=== PATIENT | male | born 1965 | race Caucasian/White ===

== ENCOUNTER 2017-01-13 20:06 | Emergency (ER) | payer MEDICAID, OTHER ==
[~2017-01-13] VITALS: Ht 180.3 cm; Wt 108.0 kg
[2017-01-13 20:09] VITALS: Ht 180.3 cm; Wt 108.0 kg
[2017-01-13] MEDS ORDERED: HYDROmorphONE 1 MG/ML SYG IV STA (20:52)
[2017-01-13] MEDS ORDERED: DIPHENHYDRAMINE 50 MG INJ IV STA (20:52)
[2017-01-13] MEDS ORDERED: METOCLOPRAMIDE 10 MG INJ IV STA (20:52)
--- NOTE | 2017-01-13 21:19 | RADRPT ---
PROCEDURE: CT Brain without contrast. CLINICAL INDICATION: Severe headache and photophobia. TECHNIQUE: A CT of the brain without contrast was performed utilizing axial sections from the skul l base through the vertex. The patient was scanned without intravenous contrast enhancement. Sagitta l and coronal reformatted images were obtained using the data from the axial images. Total exam DLP is 720.23 mGy-cm. CTDIvol is 44.19 mGy. One or more of the following dose reduction techniques we re used: Automated exposure control, adjustment of the mA and/or kV according to patient size, use o f iterative reconstruction technique. COMPARISON: None available FINDINGS: There is normal manrique-white matter differentiation. The ventricles and cisterns are normal. There is no intracranial hemorrhage or space-occupying lesion. There is no skull fracture or lytic lesion. IMPRESSION: 1. Normal noncontrast CT scan of the brain. 2. No intracranial hemorrhage. RPTAT: QQ .Petar Carmona MD, MD Date Time Electronically viewed and signed by .Petar Carmona MD, on 01/13/2017 21:19 .R/
[2017-01-13] MEDS ORDERED: HYDR-902 PO (21:34)
[2017-01-13] MEDS ORDERED: AMLO-218 PO (21:34)
--- NOTE | 2017-01-13 21:43 | ERD ---
ER Documentation Chief Complaint Date/Time DATE: 01/13/17 TIME: 21:41 Chief Complaint migraine headaches x 1 day HPI This is a 51-year-old male is had headaches for a year and a half that began in the occipital region and spread diffusely there is no aura. Patient has photophobia phonophobia and headache is worse with positional change. The headache is throbbing. Patient has no nausea vomiting but does at times with these headaches. The patient had this headache for 1 day. The patient says he gets these headaches at random times that can occur once a week or twice a week sometimes sometimes longer. He has no focal neurological complaints such as numbness weakness speech or visual change. No fever stiff neck ROS All systems reviewed and are negative except as per history of present illness. Medications Home Meds Active Scripts Hydrocodone/Acetaminophen ([place] 10-325 Tablet) 1 Each Tablet, 1 TAB PO Q6H Y for PAIN, #20 TAB Prov:CAROLYNN CRUZSTALFREDITOS A. DO 01/13/17 Amlodipine Besylate* (Norvasc*) 10 Mg Tablet, 10 MG PO DAILY, #30 TAB Prov:LEKKOSAPOSTOLOS A. DO 01/13/17 Allergies Allergies: Coded Allergies: morphine (Verified Allergy, Unknown, sob, 01/13/17) PMhx/Soc History of Surgery: No Anesthesia Reaction: No Hx Neurological Disorder: Yes (MIGRAINES) Hx Respiratory Disorders: No Hx Cardiac Disorders: No Hx Psychiatric Problems: No Hx Miscellaneous Medical Probl: Yes (GERD) Hx Alcohol Use: No Hx Substance Use: Yes (MARIJUANA) Hx Tobacco Use: Yes Smoking Status: Current every day smoker FmHx Family History: No coronary disease Physical Exam Vitals Vital Signs Date Time Temp Pulse Resp B/P Pulse Ox O2 Delivery O2 Flow Rate FiO2 01/13/17 20:09 97.6 94 18 180/97 98 Physical Exam Const: Well-developed, well-nourished Head: Atraumatic, normocephalic Eyes: Normal Conjunctiva, PERRLA, EOMI, normal sclera, no nystagmus ENT: Normal External Ears, Nose and Mouth, moist mucus membranes. Neck: Full range of motion. No meningismus, no lymphadenopathy. Resp: Clear to auscultation bilaterally, no wheezing, rhonchi, rales Cardio: Regular rate and rhythm, no murmurs, S1 S2 present Abd: Soft, non tender x 4, non distended. Normal bowel sounds, no guarding or rebound, no pulsitile abdominal masses or bruits Skin: No petechiae or rashes, no ecchymosis , no maculopapular rash Back: No midline or flank tenderness Ext: No cyanosis, or edema, FROM x 4, normal inspection, neurovascularly intact x 4 Neur: Awake and alert, STR 5/5 x 4, sensation intact x 4, no focal findings, cerebellum intact Psych: Normal Mood and Affect Results 24 hrs Current Medications Medications (Trade) Dose Ordered Sig/Pipo Route PRN Reason Start Time Stop Time Status Last Admin Dose Admin Metoclopramide HCl (Reglan) 10 mg ONCE STAT IV 01/13/17 20:52 01/13/17 20:54 DC 01/13/17 20:55 Hydromorphone HCl (Dilaudid) 1 mg ONCE STAT IV 01/13/17 20:52 01/13/17 20:54 DC 01/13/17 20:55 Diphenhydramine HCl (Benadryl) 25 mg ONCE STAT IV 01/13/17 20:52 01/13/17 20:54 DC 01/13/17 20:55 Hydralazine HCl (Apresoline) 10 mg ONCE ONCE IV 01/13/17 22:00 01/13/17 22:01 Procedures/MDM PROCEDURE: CT Brain without contrast. CLINICAL INDICATION: Severe headache and photophobia. TECHNIQUE: A CT of the brain without contrast was performed utilizing axial sections from the skull base through the vertex. The patient was scanned without intravenous contrast enhancement. Sagittal and coronal reformatted images were obtained using the data from the axial images. Total exam DLP is 720.23 mGy-cm. CTDIvol is 44.19 mGy. One or more of the following dose reduction techniques were used: Automated exposure control, adjustment of the mA and/or kV according to patient size, use of iterative reconstruction technique. COMPARISON: None available FINDINGS: There is normal manrique-white matter differentiation. The ventricles and cisterns are normal. There is no intracranial hemorrhage or space-occupying lesion. There is no skull fracture or lytic lesion. IMPRESSION: 1. Normal noncontrast CT scan of the brain. 2. No intracranial hemorrhage. RPTAT: QQ .Petar Carmona MD, Date Time Electronically viewed and signed by .Petar Carmona MD, on 01/13/2017 21:19 .R/ CC: BRIAN CRUZ DO EKG: Rate/Rhythm: Normal Sinus Rhythm,NL intervals QRS, ST, QT: NORMAL MT, QRS, QT] Impression: NORMAL EKG After IV pain meds the patient has no headache. This is a presentation of a classical migraine headache. Patient's blood pressure is still elevated at 160/ 101 and I will give hydralazine and start Norvasc at home. Patient likely has hypertension. No evidence of intracranial hemorrhage or other on CT scan. Departure Diagnosis: Primary Impression: Migraine Migraine type: unspecified Status migrainosus presence: without status migrainosus Intractability: not intractable Qualified Code: G43.909 - Migraine without status migrainosus, not intractable, unspecified migraine type Condition: Stable Patient Instructions: Hypertension, New (Begin Treatment), Headache, Migraine ( Classical) Additional Instructions: Other foods containing considerable amounts of tyramine are chocolate; alcoholic beverages; and fermented foods, such as most cheeses (except ricotta, cottage, cream and Neufchtel cheeses), sour cream, yogurt, shrimp paste, soy sauce, soybean condiments, teriyaki sauce, tempeh, miso soup, sauerkraut, hadleychi , BRINA CRUZ DO Jan 13, 2017 21:43
[2017-01-13 21:59] VITALS: BP 136/96; PULSE 88; RESP 16; TEMP 98
[2017-01-13] MEDS ORDERED: hydrALAzine 20 MG INJ IV ONE (22:00)
== END 2017-01-13 22:07 | disposition home or self-care (01) ==
LOC: E/R 20:06
DX: G43.909 Migraine, unspecified, not intractable, without status migrainosus (principal); F17.210 Nicotine dependence, cigarettes, uncomplicated; R40.2142 Coma scale, eyes open, spontaneous, at arrival to emergency department; R40.2252 Coma scale, best verbal response, oriented, at arrival to emergency department; R40.2362 Coma scale, best motor response, obeys commands, at arrival to emergency department
CPT/HCPCS: 70450; 96374; 96375; J1170; J1200; J2765; Z7502; J0360

== ENCOUNTER 2017-10-30 21:46 | Emergency (ER) | payer MEDICAID, OTHER ==
[~2017-10-30] VITALS: Ht 177.8 cm; Wt 116.9 kg
[~2017-10-30 21:46] MED LIST: AMLO-218 PO; HYDR-902 PO
[2017-10-30 22:21] VITALS: Ht 177.8 cm; Wt 116.9 kg
[2017-10-31] MEDS ORDERED: ALBUTEROL 0.083% (NEB) 2.5 MG/3 ML AMP HHN STA (00:37)
[2017-10-31 00:55] LABS: BASOPHILS % 0.3 % (0.0-2.0); EOSINOPHILS # 0.2 10^3/ul (0.0-0.5); EOSINOPHILS % 2.4 % (0.0-7.0); HEMATOCRIT 41.5 % (42.0-52.0); HEMOGLOBIN 13.5 g/dl (14.0-18.0); LYMPHOCYTES # 2.6 10^3/ul (0.8-2.9); LYMPHOCYTES % 28.2 % (15.0-51.0); MEAN CORPUSCULAR HEMOGLOBIN 28.4 pg (29.0-33.0); MEAN CORPUSCULAR HGB CONC 32.5 g/dl (32.0-37.0); MEAN CORPUSCULAR VOLUME 87.4 fl (82.0-101.0); MEAN PLATELET VOLUME 9.9 fl (7.4-10.4); MONOCYTE # 0.7 10^3/ul (0.3-0.9); MONOCYTES % 7.1 % (0.0-11.0); NEUTROPHIL # 5.5 10^3/ul (1.6-7.5); NEUTROPHILS % 60.2 % (39.0-77.0); PLATELET COUNT 331 10^3/UL (140-415); RED BLOOD COUNT 4.75 10^6/ul (4.70-6.10); RED CELL DISTRIBUTION WIDTH 12.9 % (11.5-14.5); WHITE BLOOD COUNT 9.1 10^3/ul (4.8-10.8)
[2017-10-31] MEDS ORDERED: IPRATROPIUM (NEB) 0.5 MG/2.5 ML AMP HHN ONE (01:00)
[2017-10-31 01:17] LABS: CREATININE 0.88 mg/dl (0.61-1.24); POTASSIUM 4.3 mmol/L (3.5-5.1)
[2017-10-31 01:32] LABS: TROPONIN-I 0.014 ng/ml (0.00-0.12)
--- NOTE | 2017-10-31 01:48 | RADRPT ---
PROCEDURE: CHEST CLINICAL INDICATION: 52-year-old male with chest pain and shortness of breath. TECHNIQUE: AP upright views of the chest was obtained portably on two radiographs. The images wer e reviewed on a PACS workstation. COMPARISON: None. FINDINGS: The cardiomediastinal silhouette has a normal appearance. There is no evidence for an infiltrate. There is no evidence for congestive heart failure. There is no evidence for pneumothorax. The osseou s structures are intact. IMPRESSION: No evidence for active cardiopulmonary disease. .Andrey Lewis MD, MD Date Time Electronically viewed and signed by .Andrey Lewis MD, on 10/31/2017 01:48 .M/
[2017-10-31] MEDS ORDERED: LEVO500T10 PO (03:40)
[2017-10-31] MEDS ORDERED: ALBU18HF INHALATION (03:40)
[2017-10-31] MEDS ORDERED: LORA10CA PO (03:40)
--- NOTE | 2017-10-31 03:46 | ERD ---
ER Documentation Chief Complaint Chief Complaint SOB, productive cough, "discolored phlegm" body pain x 5 days HPI This 52-year-old male presents with cough with yellow and green phlegm as well as shortness of breath going on for the last 5 days. His good friend had bronchitis recently was treated with antibiotics. Also has body aches and chills. Denies any fevers. States he is otherwise healthy except for high cholesterol his doctor did prescribe Lasix which she will not take because it room in his father's kidneys. ROS All systems reviewed and are negative except as per history of present illness. Medications Home Meds Active Scripts Loratadine* (Claritin*) 10 Mg Capsule, 10 MG PO DAILY, #30 CAP Prov:ANI RICE DO 10/31/17 Levofloxacin* (Levofloxacin*) 500 Mg Tablet, 500 MG PO DAILY for 5 Days, TAB Prov:ANI RICE DO 10/31/17 Albuterol Sulfate* (Ventolin HFA*) 18 Gm Hfa.aer.ad, 2 PUFF INHALATION Q4H, #1 INHALER Prov:ANI RICE DO 10/31/17 Hydrocodone/Acetaminophen ([place] 10-325 Tablet) 1 Each Tablet, 1 TAB PO Q6H Y for PAIN, #20 TAB Prov:LEKKOS,APOSTOLOS A. DO 01/13/17 Amlodipine Besylate* (Norvasc*) 10 Mg Tablet, 10 MG PO DAILY, #30 TAB Prov:LEKKOS,APOSTOLOS A. DO 01/13/17 Allergies Allergies: Coded Allergies: morphine (Verified Allergy, Unknown, sob, 01/13/17) PMhx/Soc Medical and Surgical Hx: pt denies Surgical Hx History of Surgery: No Anesthesia Reaction: No Hx Neurological Disorder: Yes (MIGRAINES) Hx Respiratory Disorders: No Hx Cardiac Disorders: No Hx Psychiatric Problems: No Hx Miscellaneous Medical Probl: Yes (GERD) Hx Alcohol Use: No Hx Substance Use: Yes (MARIJUANA) Hx Tobacco Use: Yes Smoking Status: Current every day smoker Physical Exam Vitals Vital Signs Date Time Temp Pulse Resp B/P Pulse Ox O2 Delivery O2 Flow Rate FiO2 10/31/17 00:58 80 20 96 21 10/31/17 00:53 Nasal Cannula 2 10/31/17 00:53 Nasal Cannula 2.0 10/30/17 22:21 98.7 80 20 170/109 96 Physical Exam Const: [] Head: Atraumatic Eyes: Normal Conjunctiva ENT: Normal External Ears, Nose and Mouth. Neck: Full range of motion..~ No meningismus. Resp: Clear to auscultation bilaterally Cardio: Regular rate and rhythm, no murmurs Abd: Soft, non tender, non distended. Normal bowel sounds Skin: No petechiae or rashes Back: No midline or flank tenderness Ext: No cyanosis, or edema Neur: Awake and alert Psych: Normal Mood and Affect Result Diagram: 10/31/173210/31/1732 Results 24 hrs Laboratory Tests Test 10/31/17 00:33 White Blood Count 9.110^3/ul Red Blood Count 4.7510^6/ul Hemoglobin 13.5g/dl Hematocrit 41.5% Mean Corpuscular Volume 87.4fl Mean Corpuscular Hemoglobin 28.4pg Mean Corpuscular Hemoglobin Concent 32.5g/dl Red Cell Distribution Width 12.9% Platelet Count 60994^3/UL Mean Platelet Volume 9.9fl Neutrophils % 60.2% Lymphocytes % 28.2% Monocytes % 7.1% Eosinophils % 2.4% Basophils % 0.3% Nucleated Red Blood Cells % 0.0/100WBC Neutrophils # 5.510^3/ul Lymphocytes # 2.610^3/ul Monocytes # 0.710^3/ul Eosinophils # 0.210^3/ul Basophils # 0.010^3/ul Nucleated Red Blood Cells # 0.010^3/ul Sodium Level 137mmol/L Potassium Level 4.3mmol/L Chloride Level 101mmol/L Carbon Dioxide Level 30mmol/L Anion Gap 10 Blood Urea Nitrogen 18mg/dl Creatinine 0.88mg/dl Glucose Level 127mg/dl Calcium Level 10.0mg/dl Troponin I 0.014ng/ml B-Type Natriuretic Peptide 80PG/ML Current Medications Medications (Trade) Dose Ordered Sig/Pipo Route PRN Reason Start Time Stop Time Status Last Admin Dose Admin Albuterol (Proventil 0.083% (Neb)) 5 mg ONCE STAT HHN 10/31/17 00:37 10/31/17 00:39 DC 10/31/17 00:47 Ipratropium [place] (Atrovent 0.02% (Neb)) 0.5 mg ONCE ONCE HHN 10/31/17 01:00 10/31/17 01:01 DC 10/31/17 00:47 Procedures/MDM 52-year-old male with symptoms of acute bronchitis. Laboratories are normal and patient is stable on monitor. He did have prolonged expiratory time and was given a breathing treatment which made him feel much better. No signs of acute coronary syndrome or congestive heart failure. I am going to discharge him with Levaquin as well as albuterol inhaler and Claritin. Primary care follow-up and return precautions. EKG interpretation: Normal sinus rhythm rate of 68, normal axis, normal intervals, no ST-T wave changes concerning for acute ischemia. Normal EKG potline monitor interpretation: Normal size without arrhythmia [place] interpretation: See no acute process. I see no infiltrates, no pulmonary edema, pneumothorax, no fractures. Departure Diagnosis: Primary Impression: Shortness of breath Additional Impression: Acute bronchitis Condition: Stable Patient Instructions: Bronchitis, Antiobiotic Treatment (Adult) Additional Instructions: Call your primary care doctor TOMORROW for an appointment during the next 2-3 days.See the doctor sooner or return here if your condition worsens before your appointment time. ANI RICE DO Oct 31, 2017 03:46
[2017-10-31 04:17] VITALS: BP 133/87; PULSE 86; RESP 18; TEMP 98.7
== END 2017-10-31 04:19 | disposition home or self-care (01) ==
LOC: E/R 21:46
DX: R06.02 Shortness of breath (principal); J20.9 Acute bronchitis, unspecified; F17.200 Nicotine dependence, unspecified, uncomplicated
CPT/HCPCS: 36415; 71010; 80048; 83880; 84484; 85025; 93005; 94664; Z7502; Z7610

== ENCOUNTER 2018-08-26 16:20 | Emergency (ER) | END 2018-08-26 18:43 | disposition home or self-care (01) ==